=== PATIENT | female | born 2000 | race Caucasian/White ===

== ENCOUNTER 2023-05-12 14:54 | Outpatient (REF) | payer BC, SELFPAY ==
[2023-05-12 14:39] LABS: Source Nasal/Nares
[2023-05-12 15:53] LABS: COVID-19 PCR Negative (Negative)
== END 2023-05-12 14:55 | disposition home or self-care (01) ==
LOC: LBN 14:54
PROVIDERS: Referring Provider Physician Assistant Medical; Visit Provider Physician Assistant Medical
DX: J02.9 Acute pharyngitis, unspecified (principal)
CPT/HCPCS: 87635; 87070; 87086